=== PATIENT | male | born 1990 | race Caucasian/White ===

== ENCOUNTER → 2016-06-09 | Outpatient (REF) | payer OTHER ==
[2016-06-09 12:43] LABS: BASO # 0.1 K/mm3 (0.0-0.2); BASO % 1.2 % (0.0-1.0); EOS # 0.2 K/mm3 (0.0-0.50); EOS % 5.3 % (0.0-3.0); LARGE UNSTAINED CELL # 0.1 K/mm3 (0.0-0.4); LARGE UNSTAINED CELL % 2.2 % (0.0-4.0); LYMPH # 1.5 K/mm3 (1.5-6.5); LYMPH % 30.8 % (24.0-44.0); MEAN CORPUSCULAR HEMOGLOBIN 27.9 pg (27.0-33.0); MEAN CORPUSCULAR VOLUME 84.6 fl (80.0-96.0); MONO # 0.4 K/mm3 (0.0-0.8); MONO % 7.6 % (0.0-5.0); NEUTROPHILS # 2.5 K/mm3 (1.8-7.7); NEUTROPHILS % 52.8 % (36.0-66.0); PLATELET COUNT, AUTOMATED 163 k/mm3 (150-450); RED CELL DISTRIBUTION WIDTH 12.7 % (11.5-14.5); WHITE BLOOD COUNT 4.7 K/mm3 (4.0-10.0)
[2016-06-09 13:29] LABS: ALBUMIN 4.8 GM/DL (3.2-5.2); ALKALINE PHOSPHATASE 49 U/L (45-117); ALT/SGPT 20 U/L (12-78); ANION GAP 7 MEQ/L (8-16); AST/SGOT 15 U/L (15-37); BILIRUBIN,TOTAL 0.8 MG/DL (0.2-1.0); BLOOD UREA NITROGEN 11 MG/DL (7-18); CALCIUM LEVEL 9.3 MG/DL (8.5-10.1); CARBON DIOXIDE LEVEL 29 MEQ/L (21-32); CHLORIDE LEVEL 102 MEQ/L (98-107); CREATININE FOR GFR 0.93 MG/DL (0.70-1.30); FREE T4 1.03 NG/DL (0.76-1.46); GLOMERULAR FILTRATION RATE > 60.0 (>60); GLUCOSE, FASTING 87 MG/DL (70-105); POTASSIUM SERUM 4.5 MEQ/L (3.5-5.1); SODIUM LEVEL 138 MEQ/L (136-145); TOTAL PROTEIN 7.8 GM/DL (6.4-8.2)
== END ==
LOC: M SFHCADAM 10:51
PROVIDERS: ATTEND Physician Assistant Medical
DX: Z00.00 Encounter for general adult medical examination without abnormal findings (principal); F90.0 Attention-deficit hyperactivity disorder, predominantly inattentive type

== ENCOUNTER 2017-02-15 10:09 | Emergency (ER) | payer OTHER | END 2017-02-15 14:28 | disposition home or self-care (01) | LOC: M ED 10:09 | DX: S90.31XA Contusion of right foot, initial encounter (principal); W22.09XA Striking against other stationary object, initial encounter; Y92.89 Other specified places as the place of occurrence of the external cause; Y93.89 Activity, other specified; Y99.8 Other external cause status; Z87.891 Personal history of nicotine dependence | CPT/HCPCS: 73630 ==

== ENCOUNTER → 2017-03-25 | Outpatient (REF) | payer OTHER ==
[2017-03-25 20:41] LABS: TOTAL 25(OH) VITAMIN D 27.4 NG/ML (30.0-100.0)
== END ==
LOC: M SFHCADAM 15:28
DX: E55.9 Vitamin D deficiency, unspecified (principal)

== ENCOUNTER → 2018-05-31 | Outpatient (REF) | payer BC, OTHER ==
[~2018-05-31] MED LIST: ADDE20CA3 PO; FLOM0.4C39 PO; IBUP1TAB7 PO; IBUP80TA PO; MOBI4TAB PO; ONDA4TAB6 PO; PERC5TAB12 PO
== END ==
LOC: M LAB REF 19:16
PROVIDERS: ATTEND Physician Assistant Medical
DX: R31.9 Hematuria, unspecified (principal)

== ENCOUNTER 2018-06-03 07:36 | Emergency (ER) | payer BC, OTHER ==
[~2018-06-03] VITALS: Ht 175.3 cm; Wt 59.1 kg
[~2018-06-03 07:36] MED LIST changes: -FLOM0.4C39 PO; -IBUP80TA PO; -ONDA4TAB6 PO; -PERC5TAB12 PO
[2018-06-03] MEDS ORDERED: KETOROLAC 30 MG/ML VIAL (J1885) IV ONE (08:15)
[2018-06-03] MEDS ORDERED: ONDANSETRON 4MG/2ML VIAL (J2405) IV ONE ×2 (08:15→11:30)
[2018-06-03] MEDS ORDERED: NS 1,000 ML IV ONE ×2 (08:15→09:15)
[2018-06-03 08:21] LABS: BASO # 0.1 10^3/uL (0.0-0.2); BASO % 0.8 % (0.0-1.0); EOS # 0.2 10^3/uL (0.0-0.50); EOS % 3.6 % (0.0-3.0); HEMOGLOBIN 14.8 g/dl (13.5-17.5); LYMPH # 1.8 10^3/uL (1.5-6.5); LYMPH % 29.8 % (24.0-44.0); MEAN CORPUSCULAR HEMOGLOBIN 27.9 pg (27.0-33.0); MEAN CORPUSCULAR HGB CONC 33.6 g/dl (32.0-36.5); MEAN CORPUSCULAR VOLUME 82.9 fl (80.0-96.0); MONO # 0.6 10^3/uL (0.0-0.8); MONO % 9.3 % (0.0-5.0); NEUTROPHILS # 3.4 10^3/uL (1.8-7.7); NEUTROPHILS % 56.3 % (36.0-66.0); PLATELET COUNT, AUTOMATED 171 10^3/uL (150-450); RED BLOOD COUNT 5.31 10^6/uL (4.30-6.10); WHITE BLOOD COUNT 6.1 10^3/uL (4.0-10.0)
[2018-06-03 08:40] LABS: ALBUMIN 4.8 GM/DL (3.2-5.2); ALT/SGPT 26 U/L (12-78); BILIRUBIN,DIRECT 0.2 MG/DL (0.0-0.2); BILIRUBIN,TOTAL 0.6 MG/DL (0.2-1.0); BLOOD UREA NITROGEN 16 MG/DL (7-18); CALCIUM LEVEL 9.3 MG/DL (8.5-10.1); CARBON DIOXIDE LEVEL 30 MEQ/L (21-32); CHLORIDE LEVEL 107 MEQ/L (98-107); CREATININE FOR GFR 1.05 MG/DL (0.70-1.30); GLOMERULAR FILTRATION RATE > 60.0 (>60); GLUCOSE, FASTING 101 MG/DL (70-100); POTASSIUM SERUM 3.7 MEQ/L (3.5-5.1); SODIUM LEVEL 141 MEQ/L (136-145); TOTAL PROTEIN 7.6 GM/DL (6.4-8.2)
--- NOTE | 2018-06-03 08:53 | REP ---
CT abdomen and pelvis without IV or oral contrast: History: Left renal colic. No comparison study. Findings: Preliminary digital gamma operator radiograph shows a slightly air distended loop of the distal transverse colon, question ileus. Axial CT images show clear lung bases. The liver and the spleen are normal in size homogeneous in texture. No pancreatic or gallbladder abnormality is seen. No adrenal abnormality is observed. There is no intrarenal calculus on either side. There is however mild to moderate left-sided hydronephrosis and hydroureter. This is due to a 3 mm calculus in the distal ureter several centimeters above the ureterovesical junction. There is mild ureteral mural thickening at the level of the calculus. There are also two phleboliths in the left pelvis. No bladder calculus is seen. Small and large bowel loops are otherwise unremarkable. No abdominal wall defect is seen. No significant bony abnormality is appreciated. Normal appendix is seen in the right lower quadrant. Impression: Mild to moderate left-sided hydronephrosis and hydroureter due to a 3 mm distal ureteral calculus located 2-3 cm above the ureterovesical junction. Electronically Signed by Pb Klein MD 06/03/2018 08:44 A
[2018-06-03] MEDS ORDERED: MORPHINE 4 MG/ML 1ML VIAL/SYRINGE (J2270) IV ONE (09:15)
[2018-06-03] MEDS ORDERED: NACL IV ONE (10:00)
[2018-06-03] MEDS ORDERED: DILUENT IV ONE (10:00)
[2018-06-03] MEDS ORDERED: KETAMINE IV ONE (10:00)
[2018-06-03] MEDS ORDERED: PERCOCET 5MG/325MG TAB PO ONE (11:30)
[2018-06-03 12:33] VITALS: BP 104/63
[2018-06-03] MEDS ORDERED: FLOM0.4C39 PO (12:33)
[2018-06-03] MEDS ORDERED: ONDA4TAB6 PO (12:33)
[2018-06-03] MEDS ORDERED: IBUP80TA PO (12:33)
[2018-06-03] MEDS ORDERED: PERC5TAB12 PO (12:33)
== END 2018-06-03 12:56 | disposition home or self-care (01) ==
LOC: M ED 07:36
DX: N20.1 Calculus of ureter (principal); F90.9 Attention-deficit hyperactivity disorder, unspecified type; Z87.891 Personal history of nicotine dependence; Z79.899 Other long term (current) drug therapy
CPT/HCPCS: 74176; 80048; 80076; 81001; 85025; 96365; 96375; 96376; 99284; J1885; J2270; J2405

== ENCOUNTER → 2018-06-10 | Outpatient (REF) | payer BC ==
[~2018-06-10] MED LIST changes: +FLOM0.4C39 PO; +IBUP80TA PO; +ONDA4TAB6 PO; +PERC5TAB12 PO
== END ==
LOC: M SMT 13:13
PROVIDERS: ATTEND Nurse Practitioner Women's Health
DX: N13.2 Hydronephrosis with renal and ureteral calculous obstruction (principal)

== ENCOUNTER → 2019-07-28 | Outpatient (CLI) | payer BC ==
--- NOTE | 2019-07-30 16:07 | REP ---
Five views right knee: 07/28/2019. Indication: Right knee pain. Comparison: None. Findings: There is no acute fracture, subluxation or dislocation. No significant joint effusion is present. Disc space height is maintained. Small bone island within the proximal tibia is present. Impression: No acute fracture. Electronically Signed by Alec Ching DO 07/30/2019 03:58 P
== END ==
LOC: M ADAMS 16:26
PROVIDERS: ATTEND Physician Assistant Medical
DX: M25.561 Pain in right knee (principal)

== ENCOUNTER 2020-05-26 18:16 | Emergency (ER) | payer BC ==
[~2020-05-26] VITALS: Ht 175.3 cm; Wt 64.6 kg
[2020-05-26 18:17] VITALS: BP 105/69
--- NOTE | 2020-05-26 19:10 | REP ---
INDICATION: TRAUMA COMPARISON: None. TECHNIQUE: Four views left wrist. FINDINGS: There is no evidence of acute fracture, dislocation, or intrinsic bone disease. IMPRESSION: No fracture or dislocation. <Electronically signed by Lionel Wong > 05/26/20 [id number]
--- NOTE | 2020-05-26 19:13 | REP ---
INDICATION: TRAUMA COMPARISON: None. TECHNIQUE: Four views left hand. FINDINGS: There is no evidence of acute fracture, dislocation, or intrinsic bone disease. IMPRESSION: No fracture or dislocation. <Electronically signed by Lionel Wong > 05/26/20 [id number]
[2020-05-26] MEDS ORDERED: KETOROLAC TROMETHAMINE 10 MG TAB PO ONE (20:20)
== END 2020-05-26 20:35 | disposition home or self-care (01) ==
LOC: M ED 18:16
DX: S61.412A Laceration without foreign body of left hand, initial encounter (principal); S60.222A Contusion of left hand, initial encounter; W23.0XXA Caught, crushed, jammed, or pinched between moving objects, initial encounter; Y92.9 Unspecified place or not applicable; Y93.9 Activity, unspecified; Y99.9 Unspecified external cause status; F98.8 Other specified behavioral and emotional disorders with onset usually occurring in childhood and adolescence; Z79.899 Other long term (current) drug therapy

== ENCOUNTER 2020-08-14 11:46 | Emergency (ER) | payer BC ==
[~2020-08-14] VITALS: Ht 175.3 cm; Wt 64.0 kg
[2020-08-14] MEDS ORDERED: CIPR7.5D5 AD ×2 (13:49→13:52)
[2020-08-14 14:02] VITALS: BP 110/68
== END 2020-08-14 14:03 | disposition home or self-care (01) ==
LOC: M ED 11:46
DX: H60.91 Unspecified otitis externa, right ear (principal); T16.1XXA Foreign body in right ear, initial encounter; X58.XXXA Exposure to other specified factors, initial encounter; Y92.89 Other specified places as the place of occurrence of the external cause; F90.9 Attention-deficit hyperactivity disorder, unspecified type; Z79.899 Other long term (current) drug therapy

== ENCOUNTER → 2021-09-22 | Outpatient (CLI) | payer BC ==
[~2021-09-22] MED LIST changes: +CIPR7.5D5 AD
== END ==
LOC: M ADAMS 10:31
PROVIDERS: ATTEND Pain Medicine Interventional Pain Medicine
DX: M47.812 Spondylosis without myelopathy or radiculopathy, cervical region (principal)

== ENCOUNTER → 2022-01-21 | Outpatient (CLI) | payer BC | LOC: M RAD 07:44 | PROVIDERS: ATTEND Nurse Practitioner Family | DX: M54.2 Cervicalgia (principal) ==

== ENCOUNTER → 2023-08-11 | Outpatient (REF) | payer OTHER ==
[~2023-08-11] MED LIST changes: +ONDA-282 PO; -ONDA4TAB6 PO
[2023-08-11 13:24] LABS: BASO # 0.1 10^3/uL (0.0-0.2); BASO % 0.7 % (0.0-1.0); EOS # 0.3 10^3/uL (0.0-0.5); EOS % 4.6 % (0.0-3.0); LYMPH # 1.4 10^3/uL (1.5-5.0); LYMPH % 21.1 % (24.0-44.0); MEAN CORPUSCULAR HEMOGLOBIN 27.4 pg (27.0-33.0); MEAN CORPUSCULAR HGB CONC 31.9 g/dl (32.0-36.5); MEAN CORPUSCULAR VOLUME 85.8 fl (80.0-96.0); MONO # 0.6 10^3/uL (0.0-0.8); MONO % 8.6 % (2.0-8.0); NEUTROPHILS # 4.4 10^3/uL (1.5-8.5); NEUTROPHILS % 64.7 % (36.0-66.0); PLATELET COUNT, AUTOMATED 171 10^3/uL (150-450); RED BLOOD COUNT 5.48 10^6/uL (4.30-6.10); WHITE BLOOD COUNT 6.7 10^3/uL (4.0-10.0)
[2023-08-11 13:51] LABS: ALBUMIN 4.5 G/DL (3.2-5.2); ALKALINE PHOSPHATASE 58 U/L (46-116); ALT/SGPT 12 U/L (7.0-40); AST/SGOT 11 U/L (<34); BILIRUBIN,TOTAL 0.9 MG/DL (0.3-1.2); BLOOD UREA NITROGEN 18 MG/DL (9-23); CALCIUM LEVEL 9.7 MG/DL (8.5-10.1); CARBON DIOXIDE LEVEL 31 MMOL/L (20-31); CHLORIDE LEVEL 108 MMOL/L (98-107); CHOLESTEROL LEVEL 128 MG/DL (<200); CHOLESTEROL RISK RATIO 2.33 (<5); GLOMERULAR FILTRATION RATE > 60.0 (>60); GLUCOSE, FASTING 90 MG/DL (60-100); HDL CHOLESTEROL 54.9 MG/DL (>40); LDL CHOLESTEROL 59.1 MG/DL (<100); NON-HDL-C 73.1 MG/DL; POTASSIUM SERUM 4.6 MMOL/L (3.5-5.1); SODIUM LEVEL 141 MMOL/L (136-145); TRIGLYCERIDES LEVEL 70 MG/DL (<150)
[2023-08-11 13:55] LABS: THYROID STIMULATING HORMONE 3.034 uIU/ML (0.55-4.78); TOTAL 25(OH) VITAMIN D 35.4 NG/ML (20.0-100.0)
== END ==
LOC: M SFHCADAM 08:34
PROVIDERS: ATTEND Physician Assistant Medical
DX: E55.9 Vitamin D deficiency, unspecified (principal); Z13.220 Encounter for screening for lipoid disorders; Z13.1 Encounter for screening for diabetes mellitus; Z13.29 Encounter for screening for other suspected endocrine disorder